=== PATIENT | male | born 1995 ===

== ENCOUNTER 2017-06-20 12:46 | Emergency (ER) | payer BC ==
[~2017-06-20] VITALS: Ht 188 cm; Wt 81.0 kg
[2017-06-20 12:55] VITALS: TEMP 37.1; Ht 188 cm; Wt 81.0 kg
--- NOTE | 2017-06-20 13:31 | DIAGNOSTIC IMAGING REPORT ---
R ANKLE MIN 3 VIEWS ROUTINE HISTORY: 21 years-old Male right ankle injury acute right ankle pain status post injury. Pain is most pronounced laterally. COMPARISON: None available. TECHNIQUE: 3 views of the right ankle. FINDINGS: There is moderate soft tissue swelling about the ankle, greatest anterolaterally. Small joint effusion. There is an acute oblique fracture of the distal fibula with distal portion of the fracture extending to the tibial plafond. The distal tibia and talus appear intact. No osteochondral defect or opaque foreign body. IMPRESSION: Acute nondisplaced oblique fracture of the distal fibula extending to the level of the ankle mortise. The above report was generated using voice recognition software. It may contain grammatical, syntax or spelling errors. Electronically signed by: Puneet Mosley M.D. 06/20/2017 1:29 PM Dictated Date/Time: 06/20/2017 1:27 PM
[2017-06-20 14:14] VITALS: BP 124/72; PULSE 70; O2SAT 99
--- NOTE | 2017-06-21 07:47 | EMERGENCY ROOM VISIT NOTE ---
ED Visit Note First contact with patient: 13:01 CHIEF COMPLAINT: Ankle pain HISTORY OF PRESENT ILLNESS: This 21-year-old male patient presents to the emergency department after sustaining an injury to the right ankle and foot with a twisting, inversion motion yesterday. The patient states that he was playing football with friends, and was pushed backwards, when he suffered his injury. The patient complains of pain along the outside of the ankle. The patient is without pain of the foot. The patient rates the pain as dull and 6/ 10. The patient is not able to bear weight on the foot. He has been using crutches from home. Constant pain, worse with movement, weight bearing, and the dependent position. No knee pain, the patient is able to move their toes. No numbness or weakness of the foot, no laceration. The patient has not had a previous fracture to this ankle. The patient has taken nothing for the pain. The patient denies any other injury. REVIEW OF SYSTEMS: A 6 system review of systems was completed with positives and pertinent negatives listed in the HPI. ALLERGIES: No known allergies MEDICATIONS: No chronic medication PMH: Otherwise healthy. History of previous left meniscus surgery. SOCIAL HISTORY: Student who lives locally PHYSICAL EXAM: Vital Signs: Reviewed Nurse's notes, vital signs stable. GENERAL : White male, no acute distress, but appears in pain, well-developed, well- nourished. MENTAL STATUS: Alert, oriented to person place and time, and cooperative. MUSCULOSKELETAL: The right ankle is swollen and tender over the lateral malleolus, but the skin is intact and there is no ligamentous instability. There is no fifth metatarsal tenderness. There is no tenderness over the rest of the foot. There is no calf or tibia/fibular tenderness. There is no visual deformity. The foot and toes are warm and well-perfused. Dorsalis pedis pulse 2+. Sensation to pain and light touch is intact. Capillary refill less than 2 seconds. R ANKLE MIN 3 VIEWS ROUTINE HISTORY: 21 years-old Male right ankle injury acute right ankle pain status post injury. Pain is most pronounced laterally. COMPARISON: None available. TECHNIQUE: 3 views of the right ankle. FINDINGS: There is moderate soft tissue swelling about the ankle, greatest anterolaterally. Small joint effusion. There is an acute oblique fracture of the distal fibula with distal portion of the fracture extending to the tibial plafond. The distal tibia and talus appear intact. No osteochondral defect or opaque foreign body. IMPRESSION: Acute nondisplaced oblique fracture of the distal fibula extending to the level of the ankle mortise. EMERGENCY DEPARTMENT COURSE: Physical exam and history were performed. Nursing notes and EMR were reviewed. The patient appears to have suffered a right ankle injury as described above. X-rays were obtained and show a distal fibula fracture. The patient was placed in an Ortho-Glass splint. Neurovascular status remained intact after placement. The patient does have crutches from home that he is comfortable with using. I will provide the patient information for local orthopedics for further care and management. The patient indicates that he may go home for further care as he has an orthopedist near his family. The patient was instructed on conservative care otherwise and was invited back to the ER with any new, worsening, or concerning symptoms. Current/Historical Medications No Active Prescriptions or Reported Meds Allergies Coded Allergies: No Known Allergies (Unverified , 06/20/17) Vital Signs Date Time Temp Pulse Resp B/P (MAP) Pulse Ox O2 Delivery O2 Flow Rate FiO2 06/20/17 14:14 70 16 124/72 99 06/20/17 12:55 37.1 81 16 135/83 99 Room Air Departure Information Impression Primary Impression: Closed right fibular fracture Dispostion Home / Self-Care Condition GOOD Prescriptions No Active Prescriptions or Reported Meds Forms HOME CARE DOCUMENTATION FORM, IMPORTANT VISIT INFORMATION Patient Instructions My [facility] Additional Instructions You were seen and evaluated today on an emergency basis only. This is not a substitute for, or an effort to provide, complete comprehensive medical care. It is not possible to recognize and treat all injuries or illnesses in a single emergency department visit. For this reason it is recommended that you followup with [facility] , Dr Cummins office, by telephone in the morning to arrange appropriate follow- up. Let the office know you were seen in the ER to help arrange care. We recommend that you evaluated by orthopedics within the next week if you decide to go back home for care. For baseline pain relief you may alternate ibuprofen and acetaminophen every 4 hours for pain control. Take 600 mg ibuprofen (Advil) and then 4 hours later take 1000 mg acetaminophen (Tylenol). Do not take more than 3000 mg acetaminophen in a single day. Do not get the splint wet. Use your crutches to help with walking. You are welcome to return to the emergency department anytime with new, worsening, or concerning symptoms.
== END 2017-06-20 14:14 | disposition home or self-care (01) ==
LOC: C.EDB 12:48 → C.EDD 14:14
DX: S82.434A Nondisplaced oblique fracture of shaft of right fibula, initial encounter for closed fracture (principal); Y93.61 Activity, american tackle football; W03.XXXA Other fall on same level due to collision with another person, initial encounter